=== PATIENT | male | born 1990 | race Caucasian/White ===

== ENCOUNTER 2022-08-10 11:51 | Emergency (ER) | payer BC ==
[~2022-08-10] VITALS: Ht 180.3 cm; Wt 109.0 kg
[2022-08-10] MEDS ORDERED: KETOROLAC 30 MG/ML 1ML VIAL IV ONE (12:05)
[2022-08-10] MEDS ORDERED: MORPHINE 4 MG/ML 1ML VIAL IV ONE (12:05)
[2022-08-10] MEDS ORDERED: ONDANSETRON 4MG 2ML VIAL IV ONE (12:05)
[2022-08-10] MEDS ORDERED: TAMSULOSIN 0.4 MG CAP PO ONE (13:00)
[2022-08-10] MEDS ORDERED: PROMETHAZINE 25MG/ML 1ML VIAL IV ONE (14:00)
[2022-08-10] MEDS ORDERED: MORPHINE 2 MG/ML 1ML VIAL IV ONE (14:00)
[2022-08-10] MEDS ORDERED: KETO10TAB PO (14:22)
[2022-08-10] MEDS ORDERED: FLOM0.4C39 PO (14:22)
[2022-08-10] MEDS ORDERED: ONDA4TAB6 PO (15:12)
[2022-08-10 15:23] VITALS: BP 142/75
== END 2022-08-10 15:29 | disposition home or self-care (01) ==
LOC: M ED 11:51 → EDBD 11:51 → M ED 15:29
DX: N21.1 Calculus in urethra (principal); Z88.6 Allergy status to analgesic agent
CPT/HCPCS: 74176; 81001; 87086; 96374; 96375; 96376; 99284; J1885; J2405; J2550